=== PATIENT | female | born 1940 | race Caucasian/White ===

== ENCOUNTER 2018-01-14 23:00 | Inpatient (IN) ==
[2018-01-14] MEDS ORDERED: MORPHINE 4 MG/1 ML VIAL IV STA (23:43)
[2018-01-14] MEDS ORDERED: ONDANSETRON 4 MG/2 ML VIAL IV STA (23:43)
[2018-01-15 00:43] LABS: Basophils % 0.2 % (0.0-0.8); Eosinophils % 0.1 % (0.00-10.9); Hematocrit 41.7 VOL% (35.7-47.0); Hemoglobin 13.9 GM/DL (12.0-16.0); Immature Granulocytes % 0.4 %; Immature Granulocytes Absolute 0.06 #; Lymphocytes # 0.8 10*3/uL (1.4-4.0); Lymphocytes % 4.7 % (21.3-54.2); Mean Corpuscular HGB Conc 33.3 GM/DL (32-36); Mean Corpuscular Hemoglobin 32 PG (27-34); Mean Corpuscular Volume 94.8 FL (87-102); Mean Platelet Volume 11.1 FL (9.6-12.0); Monocytes # 0.8 10*3/uL (0.11-0.8); Monocytes % 4.4 % (1.7-12.7); Neutrophils # 15.3 10*3/uL (1.4-7.4); Neutrophils % 90.2 % (38.7-73.9); Platelet Count 233 T/CUMM (130-400); Red Cell Distribution Width 12.2 % (9.3-17.3)
[2018-01-15 01:21] LABS: Bilirubin,Total 0.9 MG/DL (0.2-1.0); Calcium 8.9 MG/DL (8.5-10.1); Osmolality,Calculated 284.7 MOS/KG (273-304); Potassium 3.7 MMOL/L (3.5-5.1); Total Protein 7.3 G/DL (6.4-8.3)
[2018-01-15 01:28] LABS: Band Neutrophils 7 % (0-10); Hypochromasia Slight; Lymphocytes 3 % (20-55); Metamyelocytes 1 %; Platelet Estimate Normal; Segmented Neutrophils 84 % (50-85)
[2018-01-15 01:29] LABS: Total Cells Counted 100
[2018-01-15 01:52] LABS: Apearance,Urine Slightly Hazy (Clear); Bilirubin,Urine Negative (Negative); Blood, Urine Negative (Negative); Glucose,Urine (UA) Negative (Negative); Ketones,Urine Negative (Negative); Mucus,Urine Occasional /LPF (Occasional); Nitrite,Urine Negative (Negative); Protein,Urine Negative; RBC,Urine 1 /HPF (0-4); Squamous Epithelial Cell,Urine Occasional /HPF (0-10); Urine Color Yellow (Yellow); Urine Specific Gravity 1.056 (1.001-1.035); Urine Urobilinogen < 2.0 EU/DL (0.2-1.0); WBC,Urine 1 /HPF (0-6)
[2018-01-15] MEDS ORDERED: ONDANSETRON 4 MG/2 ML VIAL IV PRN (02:43)
[2018-01-15] MEDS ORDERED: PROMETHAZINE 25 MG/1 ML VIAL IM PRN (02:43)
[2018-01-15 02:48] LABS: Risk Ratio 2.74; VLDL CHOLESTEROL 13.8 MG/DL
[2018-01-15] MEDS ORDERED: GLUCAGON 1 MG VIAL IM PRN (02:51)
[2018-01-15] MEDS ORDERED: DEXTROSE 50% 25 GM/50 ML VIAL IV PRN (02:51)
[2018-01-15] MEDS: SODIUM CHLORIDE 0.9% 1,000 ML IV SCH ×2 (04:11→14:05)
[2018-01-15] MEDS: MEROPENEM 1,000 MG in SODIUM CHLORIDE 0.9% 100 ML IV SCH ×3 (04:14→19:11)
[2018-01-15] MEDS: MORPHINE 4 MG/1 ML VIAL IV PRN ×2 (04:32→15:22)
[2018-01-15 07:05] LABS: Basophils % 0.2 % (0.0-0.8); Eosinophils % 0.1 % (0.00-10.9); Immature Granulocytes % 0.3 %; Immature Granulocytes Absolute 0.04 #; Lymphocytes # 0.7 10*3/uL (1.4-4.0); Lymphocytes % 5.5 % (21.3-54.2); Mean Corpuscular HGB Conc 33.3 GM/DL (32-36); Mean Corpuscular Hemoglobin 32 PG (27-34); Mean Corpuscular Volume 95.6 FL (87-102); Mean Platelet Volume 11.1 FL (9.6-12.0); Monocytes # 0.7 10*3/uL (0.11-0.8); Monocytes % 6.2 % (1.7-12.7); Neutrophils # 10.4 10*3/uL (1.4-7.4); Neutrophils % 87.7 % (38.7-73.9); Platelet Count 217 T/CUMM (130-400); Red Blood Count 4.08 MC/CUMM (3.8-5.5); Red Cell Distribution Width 12.3 % (9.3-17.3); White Blood Count 11.8 T/CUMM (4-12)
[2018-01-15] MEDS: INSULIN REGULAR 100 UNIT/ML SUBCUT SCH ×3 (07:12→19:08)
[2018-01-15 07:23] LABS: Albumin 3.6 G/DL (3.4-5.0); Bilirubin,Total 0.7 MG/DL (0.2-1.0); Calcium 8.4 MG/DL (8.5-10.1); Osmolality,Calculated 282.5 MOS/KG (273-304); Potassium 4.1 MMOL/L (3.5-5.1); Thyroid Stimulating Hormone 1.65 uIU/ml (0.358-3.74); Total Protein 6.8 G/DL (6.4-8.3)
[2018-01-15] MEDS: PANTOPRAZOLE 40 MG VIAL IV SCH (09:26)
[2018-01-15] MEDS: ENOXAPARIN 40 MG/0.4 ML SYRINGE SUBCUT SCH (09:29)
[2018-01-15] MEDS: LACTATED RINGERS 1,000 ML IV SCH (19:12)
[2018-01-16] MEDS: LACTATED RINGERS 1,000 ML IV SCH ×4 (00:32→13:05)
[2018-01-16] MEDS: INSULIN REGULAR 100 UNIT/ML SUBCUT SCH ×4 (01:03→20:14)
[2018-01-16] MEDS: MEROPENEM 1,000 MG in SODIUM CHLORIDE 0.9% 100 ML IV SCH ×3 (03:52→20:13)
[2018-01-16 05:26] LABS: Basophils % 0.2 % (0.0-0.8); Eosinophils # 0.1 10*3/uL (0.0-0.87); Eosinophils % 0.5 % (0.00-10.9); Hematocrit 36.4 VOL% (35.7-47.0); Hemoglobin 11.9 GM/DL (12.0-16.0); Immature Granulocytes % 0.5 %; Lymphocytes % 5.4 % (21.3-54.2); Mean Corpuscular HGB Conc 32.7 GM/DL (32-36); Mean Corpuscular Hemoglobin 32 PG (27-34); Mean Corpuscular Volume 96.8 FL (87-102); Mean Platelet Volume 12.2 FL (9.6-12.0); Monocytes % 5.2 % (1.7-12.7); Neutrophils # 16.3 10*3/uL (1.4-7.4); Neutrophils % 88.2 % (38.7-73.9); Platelet Count 114 T/CUMM (130-400); Red Blood Count 3.76 MC/CUMM (3.8-5.5); Red Cell Distribution Width 12.7 % (9.3-17.3); White Blood Count 18.4 T/CUMM (4-12)
[2018-01-16 05:51] LABS: Band Neutrophils 5 % (0-10); Hypochromasia 1+; Lymphocytes 6 % (20-55); Segmented Neutrophils 86 % (50-85); Total Cells Counted 100
[2018-01-16 06:05] LABS: Albumin 2.5 G/DL (3.4-5.0); Calcium 7.9 MG/DL (8.5-10.1); Osmolality,Calculated 281.3 MOS/KG (273-304); Potassium 3.6 MMOL/L (3.5-5.1); Total Protein 5.8 G/DL (6.4-8.3)
[2018-01-16] MEDS: ENOXAPARIN 40 MG/0.4 ML SYRINGE SUBCUT SCH (09:00)
[2018-01-16] MEDS ORDERED: LIDOCAINE 1%/EPI INJ 20 ML VIAL ONE (09:48)
[2018-01-16] MEDS ORDERED: LACTATED RINGERS 1,000 ML IV SCH (10:00)
[2018-01-16] MEDS ORDERED: LIDOCAINE 1% 20 ML VIAL ONE (12:19)
[2018-01-16] MEDS ORDERED: TISSUE ADHESIVE 1 EACH APPLICATOR TOP ONE (12:19)
[2018-01-16] MEDS ORDERED: BUPIVACAINE 0.5% /EPI 10 ML VIAL ONE (12:19)
[2018-01-16] MEDS ORDERED: fentaNYL 100 MCG/2 ML VIAL ONE ×2 (12:29→12:39)
[2018-01-16] MEDS ORDERED: ONDANSETRON 4 MG/2 ML VIAL ONE (12:29)
[2018-01-16] MEDS ORDERED: PROPOFOL 200 MG/20 ML VIAL IV ONE (12:29)
[2018-01-16] MEDS ORDERED: MIDAZOLAM 2 MG/2 ML VIAL ONE (12:29)
[2018-01-16] MEDS ORDERED: SEVOFLURANE 1 UNIT/15 MINUTE INH ONE (12:30)
[2018-01-16] MEDS ORDERED: GLYCOPYRROLATE 0.4 MG/2 ML VIAL ONE ×2 (12:30)
[2018-01-16] MEDS ORDERED: PHENYLEPHRINE 1 MG/10 ML SYRINGE IV ONE (12:39)
[2018-01-16] MEDS ORDERED: NEOSTIGMINE 10 MG/10 ML VIAL ONE (12:39)
[2018-01-16] MEDS: PANTOPRAZOLE 40 MG VIAL IV SCH (13:06)
[2018-01-17] MEDS: INSULIN REGULAR 100 UNIT/ML SUBCUT SCH ×3 (00:15→14:17)
[2018-01-17] MEDS: MEROPENEM 1,000 MG in SODIUM CHLORIDE 0.9% 100 ML IV SCH (03:37)
[2018-01-17 05:11] LABS: Basophils % 0.1 % (0.0-0.8); Hematocrit 31.6 VOL% (35.7-47.0); Hemoglobin 10.2 GM/DL (12.0-16.0); Immature Granulocytes % 0.9 %; Immature Granulocytes Absolute 0.16 #; Lymphocytes # 0.6 10*3/uL (1.4-4.0); Lymphocytes % 3.4 % (21.3-54.2); Mean Corpuscular HGB Conc 32.3 GM/DL (32-36); Mean Corpuscular Hemoglobin 32 PG (27-34); Mean Corpuscular Volume 97.5 FL (87-102); Mean Platelet Volume 11.3 FL (9.6-12.0); Monocytes # 0.7 10*3/uL (0.11-0.8); Monocytes % 3.9 % (1.7-12.7); Neutrophils % 91.7 % (38.7-73.9); Platelet Count 164 T/CUMM (130-400); Red Blood Count 3.24 MC/CUMM (3.8-5.5); Red Cell Distribution Width 12.6 % (9.3-17.3); White Blood Count 18.5 T/CUMM (4-12)
[2018-01-17 05:35] LABS: Albumin 2.4 G/DL (3.4-5.0); Calcium 7.9 MG/DL (8.5-10.1); Osmolality,Calculated 281.5 MOS/KG (273-304); Potassium 3.9 MMOL/L (3.5-5.1); Total Protein 5.7 G/DL (6.4-8.3)
[2018-01-17 05:41] LABS: Band Neutrophils 2 % (0-10); Lymphocytes 2 % (20-55); Segmented Neutrophils 94 % (50-85); Total Cells Counted 100
[2018-01-17 05:42] LABS: Hypochromasia 1+; Ovalocytes Slight; Platelet Estimate Adequate
[2018-01-17] MEDS: PANTOPRAZOLE 40 MG VIAL IV SCH (10:29)
[2018-01-17] MEDS ORDERED: PIPERACILLIN/TAZOBACTAM 3,375 MG in SODIUM CHLORIDE 0.9% 100 ML IV SCH (11:00)
[2018-01-17 12:30] VITALS: BP 116/73
[2018-01-17] MEDS ORDERED: LIDOCAINE 5% PATCH TRANSDERM SCH (14:00)
== END 2018-01-17 15:17 | disposition home or self-care (01) | DRG 418 ==
LOC: N.ED 23:00 → N.EDINP 01-15 02:42 → SUATTDRO 01-15 02:42 → N.3E 01-15 03:37
PROVIDERS: ADMIT Hospitalist; ATTEND Internal Medicine Geriatric Medicine
PROC: LAPCHOL (2018-01-16 09:59)